=== PATIENT | male | born 1970 | race Caucasian/White ===

== ENCOUNTER 2024-05-18 14:53 | Emergency (ER) | payer MEDICAID ==
[~2024-05-18] VITALS: Ht 162.6 cm; Wt 65.0 kg
[~2024-05-18 14:53] MED LIST: ALBU6.7H14 INH; AZIT250T PO; GUAI120015 PO
[2024-05-18 15:07] VITALS: TEMP 98.2
[2024-05-18] MEDS: hyDRALAzine 10mg tablet PO SCH (15:18)
[2024-05-18 16:30] VITALS: BP 170/99; PULSE 77; RESP 14; O2SAT 95
== END 2024-05-18 16:38 | disposition home or self-care (01) ==
LOC: ER 14:53
DX: I10 Essential (primary) hypertension (principal); Z79.2 Long term (current) use of antibiotics; Z79.899 Other long term (current) drug therapy
CPT/HCPCS: 93005; 99283